=== PATIENT | male | born 1975 | race Caucasian/White ===

== ENCOUNTER 2024-04-02 12:56 | Inpatient (IN) | payer OTHER ==
[2024-04-02 14:10] LABS: HEMATOCRIT 41.3 % (35.4-49); HEMOGLOBIN 14.2 GM/dL (11.7-16.9); MCH 29.5 pg (25.7-33.7); MCHC 34.5 g/dl (32.0-35.9); MEAN CELL VOLUME 85.5 fl (80-96); MEAN PLT VOLUME 6.9 fl (7.5-11.1); PLATELET COUNT 198 10^3/uL (134-434); RBC 4.83 M/mm3 (4.00-5.60); RDW 12.8 % (11.9-15.9); WHITE BLOOD COUNT 11.6 K/mm3 (4.0-10.0)
[2024-04-02 14:13] LABS: VENOUS BASE EXCESS -0.1 mmol/L (-2-2); VENOUS PCO2 34.8 mmHg (38-52); VENOUS PH 7.443 (7.310-7.410)
[2024-04-02 14:15] LABS: EPI CELLS 23 /uL (0-25.1); HYALINE CASTS 1 /uL (0-3.1); URINE APPEARANCE CLEAR; URINE BACTERIA 208 /uL (0-1359); URINE BILIRUBIN 1+ (NEGATIVE); URINE COLOR ORANGE; URINE GLUCOSE (UA) 3+ (NEGATIVE); URINE KETONE TRACE (NEGATIVE); URINE LEUK ESTERASE NEGATIVE (NEGATIVE); URINE NITRITE NEGATIVE (NEGATIVE); URINE PROTEIN 2+ (NEGATIVE); URINE RBC 20 /uL (0-23.9)
[2024-04-02 14:17] LABS: INR 1.08 (0.83-1.09); PROTHROMBIN TIME (PATIENT) 12.4 SEC (9.7-13.0)
[2024-04-02 14:20] LABS: ACTIVATED PTT 25.2 SECONDS (25.2-36.5)
[2024-04-02 14:26] LABS: CALCIUM 8.9 mg/dL (8.5-10.1)
[2024-04-02 14:27] LABS: ALBUMIN 3.5 g/dl (3.4-5.0)
[2024-04-02 14:30] LABS: CREATININE 1.4 mg/dL (0.55-1.3)
[2024-04-02 14:31] LABS: BILIRUBIN,TOTAL 1.4 mg/dL (0.2-1); TOT PROT 7.7 g/dl (6.4-8.2)
[2024-04-02 14:36] LABS: LACTIC ACID 2.3 mmol/L (0.4-2.0)
[2024-04-02 14:43] LABS: URINE WBC 66 /uL (0-25.8)
[2024-04-02] MEDS: LACTATED RINGERS SOLUTION 1000 ML INFUS.BAG IV ONE ×2 (14:53→23:02)
[2024-04-02] MEDS: LACTATED RINGERS SOLUTION 1000 ML INFUS.BAG IV STA (14:53)
[2024-04-02 15:16] LABS: ANISOCYTOSIS 0; HELMET CELLS 0; HOWELL-JOLLY BODIES 0; MACROCYTOSIS 0; OVALOCYTE 0; ROULEAU 0; SICKELED CELLS 0; TARGET CELLS 0; TEAR DROP CELLS 0; TOXIC GRANULATION 0
[2024-04-02 15:20] LABS: HIV INTERPRETATION NEGATIVE (NEGATIVE)
[2024-04-02] MEDS: IBUPROFEN 600 MG TABLET (FP) PO ONE (17:47)
[2024-04-02] MEDS ORDERED: ACETAMINOPHEN INJECTION 100 ML IVPB ONE (17:48)
[2024-04-02] MEDS ORDERED: CEFTRIAXONE 1 GM/50 ML BAG ONE (17:48)
[2024-04-02] MEDS: ACETAMINOPHEN 1000 MG/100 ML BAG IVPB ONE (18:24)
[2024-04-02] MEDS: CEFTRIAXONE 1 GM in DEXTROSE 5%-WATER - 100 ML IVPB ONE (19:02)
[2024-04-02] MEDS ORDERED: PIPERACILLIN/TAZOB 4.5 GM 4.5 GM/100 ML BAG IVPB ONE (19:36)
[2024-04-02] MEDS: PIPERACILLIN/TAZOB 4.5 GM 4.5 GM in DEXTROSE 5%-WATER 100 ML IVPB ONE (19:44)
[2024-04-02] MEDS ORDERED: MIDAZOLAM HCL 2 MG/2 ML SINGLE DOSE VIAL ONE (20:23)
[2024-04-02] MEDS ORDERED: PROPOFOL 20 ML ONE (20:23)
[2024-04-02] MEDS ORDERED: LIDOCAINE HCL/PF 2% SDV 5ML VIAL ONE (20:23)
[2024-04-02] MEDS: IOHEXOL 300 MG/ML INFUS..BTL IV ONE (20:53)
[2024-04-02] MEDS: SODIUM CHLORIDE 1,000 ML IV SCH ×2 (21:28→23:02)
[2024-04-02 21:49] LABS: POTASSIUM 3.6 mmol/L (3.5-5.1)
[2024-04-02 21:51] LABS: CALCIUM 7.7 mg/dL (8.5-10.1)
[2024-04-02 21:52] LABS: BLOOD UREA NITROGEN 19.2 mg/dL (7-18)
[2024-04-02 21:55] LABS: ALBUMIN 2.7 g/dl (3.4-5.0); CREATININE 1.2 mg/dL (0.55-1.3)
[2024-04-02 21:56] LABS: BILIRUBIN,TOTAL 0.9 mg/dL (0.2-1); TOT PROT 6.1 g/dl (6.4-8.2)
[2024-04-02] MEDS: INSULIN REGULAR HUMAN 100 UNITS/ML *VIAL IVPUSH STA (23:02)
[2024-04-02] MEDS: LACTATED RINGERS SOLUTION 1,000 ML/1,000 ML INFUS.BAG IV SCH (23:04)
[2024-04-02] MEDS: LACTATED RINGERS SOLUTION 1,000 ML/1,000 ML INFUS.BAG IV STA (23:10)
[2024-04-03] MEDS ORDERED: ACETAMINOPHEN 500 MG TABLET (FP) PO PRN (00:30)
[2024-04-03 00:35] VITALS: BMI 21.7
[2024-04-03] MEDS: LACTATED RINGERS SOLUTION 1,000 ML/1,000 ML INFUS.BAG IV SCH (02:07)
[2024-04-03] MEDS: INSULIN (LEVEMIR) 100 UNITS/ML UNITS SQ ONE (02:49)
[2024-04-03] MEDS: PIPERACILLIN/TAZOB 4.5 GM 4.5 GM in DEXTROSE 5%-WATER 100 ML IVPB SCH ×2 (02:49→14:16)
[2024-04-03] MEDS: INSULIN ASPART SLIDING SCALE (NOVOLOG) 1 VIAL SQ SCH (06:02)
[2024-04-03 07:46] LABS: POTASSIUM 3.8 mmol/L (3.5-5.1)
[2024-04-03 07:49] LABS: ALBUMIN 2.5 g/dl (3.4-5.0); CALCIUM 7.9 mg/dL (8.5-10.1)
[2024-04-03 07:50] LABS: BLOOD UREA NITROGEN 16.6 mg/dL (7-18); MAGNESIUM 1.7 mg/dL (1.8-2.4)
[2024-04-03 07:53] LABS: PHOSPHOROUS 2.2 mg/dL (2.5-4.9)
[2024-04-03 07:54] LABS: BILIRUBIN,TOTAL 1.1 mg/dL (0.2-1); TOT PROT 5.9 g/dl (6.4-8.2)
[2024-04-03 07:55] LABS: CREATININE 0.9 mg/dL (0.55-1.3)
[2024-04-03 08:15] LABS: HEMOGLOBIN 12.3 GM/dL (11.7-16.9); MCH 29.6 pg (25.7-33.7); MEAN PLT VOLUME 7.5 fl (7.5-11.1); PLATELET COUNT 161 10^3/uL (134-434); RBC 4.14 M/mm3 (4.00-5.60); RDW 12.7 % (11.9-15.9); WHITE BLOOD COUNT 11.4 K/mm3 (4.0-10.0)
[2024-04-03 09:27] LABS: ANISOCYTOSIS 0; HELMET CELLS 0; HOWELL-JOLLY BODIES 0; MACROCYTOSIS 0; OVALOCYTE 0; ROULEAU 0; SICKELED CELLS 0; TARGET CELLS 0; TEAR DROP CELLS 0; TOXIC GRANULATION 0
[2024-04-03] MEDS: INSULIN (LEVEMIR) 100 UNITS/ML UNITS SQ SCH (09:57)
[2024-04-03] MEDS ORDERED: ACETAMINOPHEN 1000 MG/100 ML BAG IVPB PRN (15:19)
[2024-04-04 07:43] LABS: BASO % 0.1 % (0-2.0); EOS % 0.6 % (0-4.5); HEMATOCRIT 32.6 % (35.4-49); HEMOGLOBIN 11.4 GM/dL (11.7-16.9); LYMPH % 7.5 % (8-40); MCH 30.1 pg (25.7-33.7); MEAN PLT VOLUME 7.5 fl (7.5-11.1); MONO % 5.1 % (3.8-10.2); NEUT % 86.7 % (42.8-82.8); PLATELET COUNT 146 10^3/uL (134-434); RBC 3.79 M/mm3 (4.00-5.60); RDW 12.5 % (11.9-15.9); WHITE BLOOD COUNT 7.7 K/mm3 (4.0-10.0)
[2024-04-04 08:12] LABS: POTASSIUM 3.4 mmol/L (3.5-5.1)
[2024-04-04 08:16] LABS: CALCIUM 8.2 mg/dL (8.5-10.1)
[2024-04-04 08:17] LABS: ALBUMIN 2.3 g/dl (3.4-5.0); BLOOD UREA NITROGEN 12.2 mg/dL (7-18); MAGNESIUM 2.1 mg/dL (1.8-2.4)
[2024-04-04 08:20] LABS: PHOSPHOROUS 1.7 mg/dL (2.5-4.9)
[2024-04-04 08:21] LABS: BILIRUBIN,TOTAL 0.7 mg/dL (0.2-1); TOT PROT 5.8 g/dl (6.4-8.2)
[2024-04-04] MEDS: NAPH,MB-DB/K PH,MBDB POWDER PACKET PO ONE (10:36)
[2024-04-04] MEDS: POTASSIUM CHLORIDE TABS 20 MEQ TABLET.ER (FP) PO ONE (10:38)
[2024-04-04] MEDS ORDERED: MAGNESIUM HYDROX 2400MG/30ML ORAL SUSPENSION 30 ML CUP PO PRN (12:47)
[2024-04-04] MEDS: MAGNESIUM HYDROX 2400MG/30ML ORAL SUSPENSION 30 ML CUP PO ONE (13:03)
[2024-04-04] MEDS: POTASSIUM PHOSPHATE 45 MM in SODIUM CHLORIDE 500 ML IVPB ONE (14:27)
[2024-04-04] MEDS: POLYETHYLENE GLYCOL (HEALTHYLAX) 3350 17 GM PACKET PO ONE (21:33)
[2024-04-04] MEDS: INSULIN (LEVEMIR) 100 UNITS/ML UNITS SQ SCH (21:36)
[2024-04-05 08:54] LABS: HEMATOCRIT 33.1 % (35.4-49); HEMOGLOBIN 11.7 GM/dL (11.7-16.9); MCH 30.1 pg (25.7-33.7); MCHC 35.4 g/dl (32.0-35.9); MEAN PLT VOLUME 7.3 fl (7.5-11.1); PLATELET COUNT 191 10^3/uL (134-434); RDW 12.7 % (11.9-15.9); WHITE BLOOD COUNT 7.7 K/mm3 (4.0-10.0)
[2024-04-05 09:15] LABS: POTASSIUM 3.8 mmol/L (3.5-5.1)
[2024-04-05 09:18] LABS: BLOOD UREA NITROGEN 9.9 mg/dL (7-18); CALCIUM 8.1 mg/dL (8.5-10.1)
[2024-04-05 09:22] LABS: PHOSPHOROUS 3.2 mg/dL (2.5-4.9)
[2024-04-05] MEDS: POTASSIUM PHOSPHATE 30 MM in SODIUM CHLORIDE 500 ML IVPB ONE (10:50)
[2024-04-05] MEDS: INSULIN (LEVEMIR) 100 UNITS/ML UNITS SQ SCH (21:58)
[2024-04-06] MEDS: ACETAMINOPHEN 325 MG TABLET (FP) PO ONE (00:11)
[2024-04-06] MEDS ORDERED: MAGNESIUM HYDROX 2400MG/30ML ORAL SUSPENSION 30 ML CUP PO PRN (07:14)
[2024-04-06] MEDS ORDERED: INSULIN (LEVEMIR) 100 UNITS/ML UNITS SQ ONE (08:10)
[2024-04-06 08:52] LABS: HEMATOCRIT 36.2 % (35.4-49); HEMOGLOBIN 12.8 GM/dL (11.7-16.9); MCH 29.9 pg (25.7-33.7); MCHC 35.4 g/dl (32.0-35.9); MEAN CELL VOLUME 84.6 fl (80-96); MEAN PLT VOLUME 7.1 fl (7.5-11.1); PLATELET COUNT 235 10^3/uL (134-434); RBC 4.28 M/mm3 (4.00-5.60); RDW 12.6 % (11.9-15.9); WHITE BLOOD COUNT 6.8 K/mm3 (4.0-10.0)
[2024-04-06 09:15] LABS: POTASSIUM 3.8 mmol/L (3.5-5.1)
[2024-04-06 09:18] LABS: BLOOD UREA NITROGEN 10.8 mg/dL (7-18); CALCIUM 9.1 mg/dL (8.5-10.1); MAGNESIUM 2.3 mg/dL (1.8-2.4)
[2024-04-06 09:20] LABS: PHOSPHOROUS 3.8 mg/dL (2.5-4.9)
[2024-04-06] MEDS: PIPERACILLIN/TAZOB 4.5 GM 4.5 GM in DEXTROSE 5%-WATER 100 ML IVPB SCH (10:10)
[2024-04-06] MEDS: INSULIN ASPART SLIDING SCALE (NOVOLOG) 1 VIAL SQ SCH (11:24)
[2024-04-06] MEDS: INSULIN (LEVEMIR) 100 UNITS/ML UNITS SQ ONE (12:30)
[2024-04-07] MEDS: PIPERACILLIN/TAZOB 4.5 GM 4.5 GM in DEXTROSE 5%-WATER 100 ML IVPB SCH (02:37)
[2024-04-07 09:34] LABS: BASO % 0.3 % (0-2.0); EOS % 2.5 % (0-4.5); HEMATOCRIT 36.3 % (35.4-49); HEMOGLOBIN 12.6 GM/dL (11.7-16.9); LYMPH % 16.4 % (8-40); MCH 29.4 pg (25.7-33.7); MCHC 34.8 g/dl (32.0-35.9); MEAN CELL VOLUME 84.4 fl (80-96); MEAN PLT VOLUME 7.1 fl (7.5-11.1); MONO % 15.6 % (3.8-10.2); NEUT % 65.2 % (42.8-82.8); PLATELET COUNT 270 10^3/uL (134-434); RDW 12.3 % (11.9-15.9)
[2024-04-07] MEDS: TAMSULOSIN HCL 0.4 MG CAP PO SCH (09:50)
[2024-04-07 09:54] LABS: POTASSIUM 3.9 mmol/L (3.5-5.1)
[2024-04-07 10:01] LABS: ALBUMIN 2.6 g/dl (3.4-5.0)
[2024-04-07 10:03] LABS: BLOOD UREA NITROGEN 12.9 mg/dL (7-18); CALCIUM 8.9 mg/dL (8.5-10.1); MAGNESIUM 2.2 mg/dL (1.8-2.4)
[2024-04-07 10:41] LABS: BILIRUBIN,TOTAL 0.8 mg/dL (0.2-1)
[2024-04-08 09:53] LABS: BASO % 0.5 % (0-2.0); EOS % 4.3 % (0-4.5); HEMATOCRIT 36.6 % (35.4-49); HEMOGLOBIN 12.5 GM/dL (11.7-16.9); LYMPH % 22.1 % (8-40); MCH 29.1 pg (25.7-33.7); MCHC 34.2 g/dl (32.0-35.9); MONO % 13.7 % (3.8-10.2); NEUT % 59.4 % (42.8-82.8); PLATELET COUNT 332 10^3/uL (134-434); RBC 4.31 M/mm3 (4.00-5.60); RDW 12.5 % (11.9-15.9); WHITE BLOOD COUNT 7.1 K/mm3 (4.0-10.0)
[2024-04-08 10:37] VITALS: BP 124/68; PULSE 80; RESP 20; TEMP 98.3
[2024-04-08 10:45] LABS: POTASSIUM 3.9 mmol/L (3.5-5.1)
[2024-04-08 10:47] LABS: CALCIUM 8.9 mg/dL (8.5-10.1)
[2024-04-08 10:48] LABS: ALBUMIN 2.7 g/dl (3.4-5.0); MAGNESIUM 2.5 mg/dL (1.8-2.4)
[2024-04-08 10:51] LABS: CREATININE 1.2 mg/dL (0.55-1.3)
[2024-04-08 10:53] LABS: BILIRUBIN,TOTAL 0.6 mg/dL (0.2-1); TOT PROT 7.4 g/dl (6.4-8.2)
== END 2024-04-08 12:54 | disposition home or self-care (01) | DRG 720 ==
LOC: JER 12:56 → JERBED 19:19 → J4W 21:13 → J8W 04-05 17:07
PROVIDERS: ADMIT Internal Medicine; ATTEND Nurse Practitioner Acute Care
PROC: 0T7D8ZZ Dilation of Urethra, Via Natural or Artificial Opening Endoscopic (ICD-10-PCS; 2024-04-02)
PROC: BT1DZZZ Fluoroscopy of Right Kidney, Ureter and Bladder (ICD-10-PCS; 2024-04-02)
PROC: 0T768DZ Dilation of Right Ureter with Intraluminal Device, Via Natural or Artificial Opening Endoscopic (ICD-10-PCS; principal; 2024-04-02 20:15)
DX: A41.9 Sepsis, unspecified organism (principal); E87.20 Acidosis, unspecified; E11.65 Type 2 diabetes mellitus with hyperglycemia; E87.1 Hypo-osmolality and hyponatremia; R65.20 Severe sepsis without septic shock; E86.0 Dehydration; N13.6 Pyonephrosis; N35.919 Unspecified urethral stricture, male, unspecified site; K59.00 Constipation, unspecified
CPT/HCPCS: 0241U-QW; 36415; 71045-TC-FY; 74176-TC; 76870-TC; 80048; 80053; 81003; 82803; 82962; 83036; 83605; 83735; 83930; 83935; 84100; 84484; 85025; 85027; 85610; 85730; 86803; 86850; 86900; 86901; 87040; 87086; 87186; 87389; 93005; 93010; 93306-TC; 94760; 99285-25; C2617; J0131